=== PATIENT | female | born 1970 ===

== ENCOUNTER 2024-04-04 18:48 | Outpatient (CLI) | payer OTHER ==
--- NOTE | 2024-04-05 14:51 | Ultrasound Report ---
PROCEDURE: Pelvic w/Transvaginal INDICATIONS: PELVIC MASS TECHNIQUE: Real-time scanning was performed of the pelvic organs, with image documentation. Additional endovagi nal scanning was necessary due to incomplete visualization of the adnexal and endometrial structures by transabdominal scanning. COMPARISON: None. FINDINGS: Uterus: Uterus is retroverted and normal in size at 5.8 x 3.3 x 3.97 cm. The myometrium is heteroge neous. 1.1 x 1 x 0.8 cm intramural fibroid is noted in posterior myometrium. The endometrium measure s 3.5 mm in combined thickness. No endometrial mass or fluid is seen. Ovaries: The right ovary measures 1.4 x 1.6 x 1.6 cm, with a calculated ovarian volume of 1.9 cc. T he left ovary measures 2.5 x 1.6 x 2.3 cm, with a calculated ovarian volume of 4.7 cc. 1.7 x 1.1 x 2 cm simple cyst is seen adjacent to right ovary. 1.2 x 0.6 x 1.5 cm simple cyst is also seen adjacent to right ovary. 1 x 0.6 x 1.5 cm simple cyst is noted and left adnexa. Less than 12 follicles can be seen in each ovary. No adnexal masses are seen. No cystic lesions measuring greater than 3 cm. Other: No pathologic free abdominal or pelvic fluid. IMPRESSION: 1. 2 simple appearing right paraovarian cyst and a simple appearing left adnexal cyst as above. No so lid appearing ovarian lesion. 2. Small uterine fibroid as above. No endometrial mass or fluid. Reviewed by: Quinton León MD on 04/05/2024 2:50 PM PDT Approved by: Quinton León MD on 04/05/2024 2:50 PM PDT Station ID: [id number]
== END 2024-04-04 18:49 | disposition home or self-care (01) ==
LOC: DI 18:48
PROVIDERS: ATTEND Family Medicine
DX: D25.1 Intramural leiomyoma of uterus (principal); N83.291 Other ovarian cyst, right side; N94.89 Other specified conditions associated with female genital organs and menstrual cycle

== ENCOUNTER 2024-05-18 08:54 | Outpatient (CLI) | payer OTHER ==
--- NOTE | 2024-05-20 09:39 | MRI Report ---
PROCEDURE: Lumbar Spine WO INDICATIONS: LOW BACK PAIN TECHNIQUE: Noncontrast sagittal T1 spin echo and T2 fast echo, sagittal STIR, axial T1 and T2 fast spin echo thr ough the lumbar spine. In cases with scoliosis, additional coronal T2 fast spin echo may be performe d. COMPARISON: None. FINDINGS: Image quality: Excellent. Alignment and Curvature: There is normal bony alignment. Bone Marrow: Marrow is of normal overall signal. No acute vertebral body compression fractures. Spinal Cord: Conus medullaris terminates at the L1 level. Visualized cord demonstrates normal signa l and size. Paraspinous Soft Tissues: No paravertebral masses. T12-L1: Normal in appearance. L1-L2: Normal in appearance. L2-L3: Normal in appearance. L3-L4: Mild disc desiccation. Broad-based disc bulge. Small facet effusions. Mild to moderate right and mild left neural foraminal narrowing. L4-L5: Disc desiccation. Small facet effusions, mild ligamentum flavum hypertrophy. Broad-based dis c bulge. Mild bilateral neural foraminal narrowing. L5-S1: Broad-based disc bulge, disc desiccation. Suspected annular fissure. Small facet effusions. IMPRESSION: Mild, lower lumbar degenerative disc disease and facet arthrosis. No severe spinal canal or neural fo raminal narrowing. Reviewed by: Mamadou Tran MD on 05/20/2024 9:38 AM PDT Approved by: Mamadou Tran MD on 05/20/2024 9:38 AM PDT Station ID: [id number]
== END 2024-05-18 08:55 | disposition home or self-care (01) ==
LOC: DI 08:54
PROVIDERS: ATTEND Family Medicine
DX: M51.36 Other intervertebral disc degeneration, lumbar region (principal); M47.816 Spondylosis without myelopathy or radiculopathy, lumbar region; M51.37 Other intervertebral disc degeneration, lumbosacral region